=== PATIENT | female | born 1990 | race Caucasian/White ===

== ENCOUNTER → 2017-07-22 | Emergency (ER) | payer OTHER ==
[~2017-07-22] VITALS: Ht 162.6 cm; Wt 54.4 kg
[~2017-07-22] MED LIST: ETHINYL ESTRADIOL; LEVONORGESTREL; LIDOCAINE HCL 1% 20 ML VIAL ONE; LIDOCAINE HCL 1% 20 ML VIAL TP ONE; NEOMY/BACITRA/POLYMYXIN B OINT UD PACKET TP ONE; SERTRALINE HCL 25 MG TABLET
--- NOTE | 2017-07-22 23:03 | NUR ---
DR. PLAZA AT BEDSIDE FOR MSE.
[2017-07-22 23:37] VITALS: BP 138/75
--- NOTE | 2017-07-22 23:37 | NUR ---
Patient discharged to home in stable conditon. Written and verbal after care instructions given. Patient verbalizes understanding of instructions. PATIENT LEFT WITH STABLE GAIT.
== END | disposition home or self-care (01) ==
LOC: ER 22:54
DX: S81.811A Laceration without foreign body, right lower leg, initial encounter (principal); W45.8XXA Other foreign body or object entering through skin, initial encounter; Y93.89 Activity, other specified; Y92.89 Other specified places as the place of occurrence of the external cause; Y99.8 Other external cause status
CPT/HCPCS: A4217; A4663; J3490